=== PATIENT | female | born 1965 | race African-American/Black ===

== ENCOUNTER 2016-12-22 11:19 | Emergency (ER) | payer MEDICAID ==
[~2016-12-22] VITALS: Ht 167.6 cm; Wt 122.0 kg
[~2016-12-22 11:19] MED LIST: BG MC; CIPRO500 MG PO; CIPROFLOXA400 MG/200 IV; FLA500 PO; FLA5PM IV; HUMULIN R100 U/1 M1 SC; HYDROMORPHONE1 MG/ML IV; TYLENOL WITH CO1 TA2 PO; [UNRECOGNIZED DRUG - CODE] IV
[2016-12-22 11:30] VITALS: BP 154/98
== END 2016-12-22 14:24 | disposition home or self-care (01) ==
LOC: ED 11:19
DX: H00.014 Hordeolum externum left upper eyelid (principal); H10.9 Unspecified conjunctivitis; L03.213 Periorbital cellulitis; E11.9 Type 2 diabetes mellitus without complications; Z79.84 Long term (current) use of oral hypoglycemic drugs